=== PATIENT | male | born 1945 | race Caucasian/White ===

== ENCOUNTER → 2017-01-05 | Outpatient (CLI) | payer BC ==
--- NOTE | ~2017-01-05 | MR17 ---
[facility] A Service of [facility] & [facility] / [facility] RADIOLOGY TEXT RESULTS PATIENT: UMAIR ARVIZU LOCATION: [facility] : 45 UNIT #: [id number] AGE: [address]: Jordan Caballero MD SEX: M ORDER DR: [id number] [facility] [address] [place], [place] [address] [id number] O MR#: [id number] Acc #: [id number] NAME: UMAIR ARVIZU : 1945 SEX: M STUDY DATE/TIME: 01/05/2017 12:45 UNIT: [facility] ROOM: STUDY DESCRIPTION: MR Brain WWo Contrast Attending Physician: Jordan Caballero M.D. Referring Physician: Jordan Caballero M.D. Ordering Physician: Jordan Caballero M.D. Primary Care Physician: Asad Heaton M.D. MRI CENTER REPORT This report is preliminary unless electronic signature is present. 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 Positional dizziness and headaches have been present since beginning chemotherapy at that time. TECHNIQUE Multiplanar imaging of the brain was performed with and without contrast. 10 mL of MultiHance was used. FINDINGS On diffusion-weighted imaging, there is a focus of restricted diffusion in the right gray. It measures 8 mm in diameter and is consistent with an acute or subacute pontine infarct. There is no evidence of hemorrhage. Elsewhere the brain, there is ydkh-lj-cbccwlww atrophy with moderate chronic ischemic changes in the periventricular deep white matter. No masses are identified. After contrast administration, no enhancing lesions are seen to suggest cerebral metastasis. Extra-axial structures are unremarkable. IMPRESSION Atrophy with moderate chronic ischemic changes around the ventricles. Ncmda-lb-ycbqbiqi infarct right mid gray 8 mm in diameter. No evidence of hemorrhage. No evidence of metastatic disease. STAT * RESULT Dictated by... Antony Moya M.D. [facility] A Service of [facility] / [facility] RADIOLOGY TEXT RESULTS PATIENT: UMAIR ARVIZU [facility] UNIT #: [id number] AGE: [address]: Jordan Caballero MD SEX: M ORDER DR: THIS IS AN ELECTRONICALLY VERIFIED REPORT Antony Moya M.D. at 01/05/2017 6:29 PM RLF/santana TD: 01/05/2017 16:16 JOB #: [id number] MRI CENTER REPORT Page 1 of 1 COPY
[2017-01-05 12:36] LABS: POC - CREATININE 1.33 mg/dL (0.64-1.27)
== END | disposition home or self-care (01) ==
LOC: CMRI 12:01
PROVIDERS: Family Medicine
DX: R51 Headache (principal); R42 Dizziness and giddiness; D68.59 Other primary thrombophilia; C64.9 Malignant neoplasm of unspecified kidney, except renal pelvis; G31.89 Other specified degenerative diseases of nervous system
CPT/HCPCS: 70553; 82565; A9577